=== PATIENT | female | born 1995 | race Caucasian/White ===

== ENCOUNTER 2018-01-16 02:37 | Emergency (ER) | payer OTHER ==
[2018-01-16 02:55] VITALS: RESP 18; TEMP 98.4
[2018-01-16 03:53] VITALS: BP 117/60; PULSE 53
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
== END 2018-01-16 04:02 | disposition home or self-care (01) ==
LOC: EC 02:37
DX: R51 Headache (principal); V47.6XXA Car passenger injured in collision with fixed or stationary object in traffic accident, initial encounter; Y92.488 Other paved roadways as the place of occurrence of the external cause
CPT/HCPCS: 99283

== ENCOUNTER → 2020-09-24 | Outpatient (CLI) | payer OTHER ==
--- NOTE | 2020-09-25 09:07 | US ---
EXAMINATION TYPE: Transabdominal DATE OF EXAM: 09/24/2020 4:17 PM COMPARISON: NONE CLINICAL HISTORY: Z36 Confirm Dates. Confirm Dates, pt has no complaints at this time EXAM PERFORMED: Transabdominal (TA) EXAM MEASUREMENTS: GESTATIONAL AGE / DATING Physician Established: (11 weeks/4 days) EDC: 04/11/2021 Dates by LMP: (9 weeks/4 days) EDC: 04/25/2021 Dates by First Scan: No prior Dates by Current Scan for: (11 weeks/3 days) EDC: 04/12/2021 MATERNAL ANATOMY Uterus: 12.9 x 7.0 x 8.6 cm Right Ovary: 3.8 x 2.4 x 1.9 Left Ovary: 3.9 x 1.4 x 3.3 Post CDS / Adnexa: wnl Presence of free fluid: No Presence of corpus luteal cyst: Left Ovary= 2.4 x 1.3 x 2.2 cm Presence of subchorionic bleed: No GESTATION / SURVEY CRL: 4.7 cm (11 weeks/3 days) MSD: wnl Heart Rate: 170 bpm Rhythm: Normal IUP: Viable IUP Date of LMP: Pt unsure, thinks= 07/19/2020 Viable IUP/ No abnormality visualized at this time IMPRESSION: 1. Single intrauterine gestation estimated at 11 weeks 3 days gestation based on crown-rump length. C ardiac activity measures 170 bpm.
== END | disposition home or self-care (01) ==
LOC: RADUSWWP 16:03
PROVIDERS: ATTEND Obstetrics & Gynecology
DX: Z3A.11 11 weeks gestation of pregnancy (principal)
CPT/HCPCS: 76801

== ENCOUNTER 2020-11-30 17:05 | Outpatient (CLI) | payer OTHER ==
[2020-11-30 17:45] LABS: Appearance,Urine Clear (Clear); Bacteria,Urine Moderate /hpf; Bilirubin,Urine Negative (Negative); Blood,Urine Trace (Negative); Color,Urine Light Yellow; Glucose,Urine (UA) Negative (Negative); Ketones,Urine Negative (Negative); Leukocyte Esterase,Urine Small (Negative); Mucus,Urine Rare /hpf; Nitrite,Urine Negative (Negative); Protein,Urine Negative (Negative); RBC,Urine 4 /hpf (0-5); Squamous Epithelial Cell,Urine <1 /hpf (0-4); Urobilinogen,Urine <2.0 mg/dL (<2.0); WBC,Urine 4 /hpf (0-5)
[2020-11-30 18:32] VITALS: BP 118/64; PULSE 66; RESP 14; TEMP 98.1
--- NOTE | 2020-12-01 08:18 | P.MSEPDOC ---
Presenting Problems - Arrival Data Date of Arrival on Unit: 11/30/20 Time of Arrival on Unit: 17:13 Mode of Transport: Ambulatory - Complaint OB-Reason for Admission/Chief Complaint: Pain Comment: cramping Medical History - Information : 1 Para: 0 Term: 0 : 0 Abortions: Spontaneous or Elective: 0 Number of Living Children: 0 - Gestational Age Gestational Age by BECK (wks/days): 21 Weeks and 0 Days Review of Systems - Review of Systems Constitutional: No problems Breast: No problems ENT: No problems Cardiovascular: No problems Respiratory: No problems Gastrointestinal: No problems Genitourinary: No problems Musculoskeletal: No problems Neurological: No problems Skin: No problems Vital Signs - Temperature Temperature: 98.1 F Temperature Source: Oral - Pulse Right Brachial Pulse Rate: 66 Pulse Assessment Method: Automatic Cuff - Respirations Respiratory Rate: 14 Oxygen Delivery Method: Room Air - Blood Pressure Right Arm Blood Pressure: 118/64 Blood Pressure Mean: 82 Blood Pressure Source: Automatic Cuff Medical Screen Scoring - Cervical Exam Dilation (cm): 0 Station: -3 Membranes: Intact Physician Notification - Physician Notified Physician Notified Date: 11/30/20 Physician Notified Time: 17:55 Physician: Janak Obrien Order Received: Yes - Notification Comment Comment: check cervix d/c home Maternal Triage Index - Maternal Triage Index Presenting for scheduled procedure w/no complaint: No - Stat/Priority 1 Stat Priority 1: No - Urgent/Priority 2 Urgent Priority 2: No - Prompt/Priority 3 Prompt Priority 3: No - Non-Urgent/Priority 4 Non-Urgent Priority 4: Yes Criteria Met for Priority 4: ligament pain Disposition - Disposition OB Disposition: Discharge to home Discharge Date: 11/30/20 Discharge Time: 18:00 I agree with the RN Medical Screening Exam: Yes Case reviewed; plan agreed upon as documented in EMR&OBIX.: Yes Diagnosis: PAIN, UNSPECIFIED (Patient presents with complaints of pelvic pain. There is no evidence of labor. I did send a urine culture to rule out a urinary tract infection. Patient was requested to follow-up with Dr. Stevens for these results or return if she has increased symptomatology.)
== END 2020-11-30 18:34 | disposition home or self-care (01) ==
LOC: FBPOP 17:05
PROVIDERS: ATTEND Obstetrics & Gynecology
DX: O26.892 Other specified pregnancy related conditions, second trimester (principal); R10.2 Pelvic and perineal pain; Z3A.21 21 weeks gestation of pregnancy
CPT/HCPCS: 81001; 87086; 99213

== ENCOUNTER → 2021-01-18 | Outpatient (CLI) | payer OTHER ==
--- NOTE | 2021-01-18 15:49 | US ---
EXAMINATION TYPE: US OB >= 14 wk fetus DATE OF EXAM: 01/18/2021 COMPARISON: US 09/24/2020 CLINICAL HISTORY: Z36.9 FOLLOW UP PREV ABN ULTRASOUND TECHNIQUE: Transabdominal (TA) GESTATIONAL AGE / DATING Physician Established: (28 weeks/0 days) EDC: 04/12/2021 Dates by LMP: (26 weeks/1 days) EDC: 04/25/2021 Dates by First Scan: (28 weeks/0 days) EDC: 04/12/2021 Dates by Current Scan: (27 weeks/5 days) EDC: 04/14/2021 SURVEY IUP: Single PLACENTA: Fundal/Posterior PREVIA: No Previa MAGGIE: 16.0 cm Normal CERVICAL LENGTH (transabdominal: norm > 3.0cm): 4.0 cm BIOMETRY PRESENTATION: Vertex LIE: Longitudinal BPD: 7.1 cm 28 weeks / 3 days HC: 26.0 cm 28 weeks / 2 days AC: 23.7 cm 28 weeks / 0 days FL: 5.2 cm 27 weeks / 5 days ESTIMATED WEIGHT IN GRAMS: 1154 grams ESTIMATED WEIGHT IN LBS/OZ: 2 lbs. 9 oz. WEIGHT PERCENTAGE BASED ON ESTABLISHED DATES: 36% HC/AC: 1.10 Normal FL/AC: 21.83 Normal HEART RATE: 146 bpm RHYTHM: Normal Viable IUP measuring 27 weeks 5 days with a heart rate of 146bpm and an estimated delivery date of . Bilateral dilated renal pelvis with right 0.6cm and left 0.6cm IMPRESSION: Dilated renal pelves. Limited scan. Single viable intrauterine corresponding to ultrasound age 27 weeks 5 days with estimated date of delivery 04/14/2021
== END | disposition home or self-care (01) ==
LOC: RADUSWWP 14:17
PROVIDERS: ATTEND Obstetrics & Gynecology
DX: O26.833 Pregnancy related renal disease, third trimester (principal); Z3A.27 27 weeks gestation of pregnancy
CPT/HCPCS: 76805

== ENCOUNTER → 2021-02-15 | Outpatient (CLI) | payer OTHER ==
--- NOTE | 2021-02-16 07:10 | US ---
EXAMINATION TYPE: US OB >= 14 wk fetus DATE OF EXAM: 02/15/2021 COMPARISON: US CLINICAL HISTORY: O36.63XO large for dates Large for dates. G1. P0. TECHNIQUE: Transabdominal (TA) GESTATIONAL AGE / DATING Physician Established: (32 weeks/0 days) EDC: 04/12/2021 Dates by LMP: (30 weeks/1 day) EDC: 04/25/2021 Dates by First Scan: (32 weeks/0 days) EDC: 04/12/2021 Dates by Current Scan: (32 weeks/2 days) EDC: 04/10/2021 SURVEY IUP: Single PLACENTA: Posterior/fundal. Complex areas seen, largest measures 0.9 x 1.3 x 0.9 cm. PREVIA: No Previa seen. AMGGIE: 17.5 cm Normal CERVICAL LENGTH (transabdominal: norm > 3.0cm): 3.6 cm BIOMETRY PRESENTATION: Vertex LIE: Longitudinal BPD: 7.94 cm 32 weeks / 0 days HC: 29.49 cm 32 weeks / 5 days AC: 28.70 cm 32 weeks / 6 days FL: 5.97 cm 31 weeks / 1 day ESTIMATED WEIGHT IN GRAMS: 1913 grams ESTIMATED WEIGHT IN LBS/OZ: 4 lbs. 3 oz. WEIGHT PERCENTAGE BASED ON ESTABLISHED DATES: 44% HC/AC: 1.03 Normal FL/AC: 21% Normal HEART RATE: 125 bpm RHYTHM: Normal *Renal pelvis measures 0.6 cm on the right and 0.6 cm on the left. IMPRESSION: Single viable intrauterine . Persistent prominence of the renal collecting systems.
== END | disposition home or self-care (01) ==
LOC: RADUSWWP 15:46
PROVIDERS: ATTEND Obstetrics & Gynecology
DX: O36.63X0 Maternal care for excessive fetal growth, third trimester, not applicable or unspecified (principal); Z3A.32 32 weeks gestation of pregnancy
CPT/HCPCS: 76805

== ENCOUNTER 2021-04-07 18:40 | Outpatient (CLI) | payer OTHER ==
[2021-04-07 20:15] VITALS: BP 127/75; PULSE 82; RESP 16; TEMP 98.5
--- NOTE | 2021-04-08 07:44 | P.MSEPDOC ---
Presenting Problems - Arrival Data Date of Arrival on Unit: 04/07/21 Time of Arrival on Unit: 18:40 Mode of Transport: Ambulatory - Complaint OB-Reason for Admission/Chief Complaint: Rule Out SROM Comment: pt. states leaking of fluid at 1400 clear fluid with white discharge Medical History - Information : 1 Para: 0 Term: 0 : 0 Abortions: Spontaneous or Elective: 0 Number of Living Children: 0 - Gestational Age Gestational Age by BECK (wks/days): 39 Weeks and 3 Days Review of Systems - Review of Systems Constitutional: No problems Breast: No problems ENT: No problems Cardiovascular: No problems Respiratory: No problems Gastrointestinal: No problems Genitourinary: No problems Musculoskeletal: No problems Neurological: No problems Skin: No problems Vital Signs - Temperature Temperature: 98.5 F Temperature Source: Oral - Pulse Pulse Oximetery Pulse Rate: 82 Pulse Assessment Method: Automatic Cuff - Respirations Respiratory Rate: 16 Oxygen Delivery Method: Room Air - Blood Pressure Right Arm Blood Pressure: 127/75 Blood Pressure Mean: 92 Blood Pressure Source: Automatic Cuff Medical Screen Scoring - Cervical Exam Dilation (cm): 2 Effacement (%): 70 Station: -3 Membranes: Intact - Assessment - Baby A Baseline FHR: 140 Heart Rate - NICHD Category: Category I (Normal) NST: Reactive Physician Notification - Physician Notified Physician Notified Date: 04/07/21 Physician Notified Time: 20:03 Physician: Mervat Groevr Order Received: Yes - Notification Comment Comment: orders to discharge patient home Maternal Triage Index - Maternal Triage Index Presenting for scheduled procedure w/no complaint: No - Stat/Priority 1 Stat Priority 1: No - Urgent/Priority 2 Urgent Priority 2: No - Prompt/Priority 3 Prompt Priority 3: Yes Criteria Met for Priority 3: possible SROM at 1400, aminsure collected x2 both negative Disposition - Disposition OB Disposition: Discharge to home Discharge Date: 04/07/21 Discharge Time: 20:08 I agree with the RN Medical Screening Exam: Yes Case reviewed; plan agreed upon as documented in EMR&OBIX.: Yes Diagnosis: FALSE LABOR AT OR AFTER 37 COMPLETED WEEKS OF GESTATION
== END 2021-04-07 20:08 | disposition home or self-care (01) ==
LOC: FBPOP 18:40
PROVIDERS: ATTEND Obstetrics & Gynecology
DX: O47.1 False labor at or after 37 completed weeks of gestation (principal); Z3A.39 39 weeks gestation of pregnancy
CPT/HCPCS: 84112; 99213

== ENCOUNTER 2021-04-11 07:42 | Inpatient (IN) | payer OTHER ==
[2021-04-11] MEDS ORDERED: CARBOPROST TROMETHAMINE 250 MCG/ML 1 ML AMP IM PRN (08:33)
[2021-04-11] MEDS ORDERED: METHYLERGONOVINE 0.2 MG/ML 1 ML AMP IM PRN (08:33)
[2021-04-11] MEDS ORDERED: LIDOCAINE 0.5% (PF) 5 MG/ML (50 ML SDV) SQ PRN (08:33)
[2021-04-11] MEDS ORDERED: OXYTOCIN 10 UNIT/ML 1 ML VIAL IM PRN (08:33)
[2021-04-11] MEDS ORDERED: TERBUTALINE 1 MG/ML VIAL SQ PRN (08:33)
[2021-04-11 08:41] LABS: Basophils % (A) 0 %; Eosinophils % (A) 0 %; HCT 37.2 % (34.0-46.0); Lymphocytes # (A) 2.6 k/uL (1.0-4.8); Lymphocytes % (A) 27 %; MCH 31.8 pg (25.0-35.0); MCHC 34.8 g/dL (31.0-37.0); MCV 91.4 fL (80.0-100.0); Mean Platelet Volume 9.9; Monocytes # (A) 0.5 k/uL (0-1.0); Monocytes % (A) 5 %; Neutrophils # (A) 6.2 k/uL (1.3-7.7); Neutrophils % (A) 65 %; Platelet Count 191 k/uL (150-450); RBC 4.07 m/uL (3.80-5.40); RDW 13.1 % (11.5-15.5); WBC 9.6 k/uL (3.8-10.6)
[2021-04-11] MEDS: LACTATED RINGERS 1,000 ML IV SCH ×3 (08:44→16:00)
[2021-04-11] MEDS ORDERED: OXYTOCIN 30 UNITS/500 ML NS 30 UNIT in SALINE 1 500ML.BAG IV SCH (08:45)
[2021-04-11] MEDS ORDERED: SODIUM CHLORIDE 0.9% 100 ML BAG ONE (10:17)
[2021-04-11] MEDS ORDERED: fentaNYL (PF) 50 MCG/ML 5 ML AMP ONE (10:17)
[2021-04-11] MEDS ORDERED: ROPIVACAINE 5MG/ML 20ML VIAL ONE (10:17)
[2021-04-11] MEDS ORDERED: ROPIVACAINE 100 MG, fentaNYL (PF). 200 MCG in SODIUM CHLORIDE 0.9% 76 ML EPIDURAL ONE (11:24)
--- NOTE | 2021-04-11 18:07 | P.HPOB ---
History of Present Illness H&P Date: 04/11/21 Chief Complaint: Contractions This is a 25-year-old female 1 para 0 at 40-0/7 weeks who presents with complaints of contractions since approximately 3 AM this morning. They became stronger and so she arrived to triage this morning. She did come up to triage a couple days ago with complaints of possible rupture of membranes but amnisure was negative. She states she has felt occasional leakage since that time including earlier this morning. Upon arrival she was not found to be ruptured but she was lara regularly and was 4 and half centimeters. care has been with Dr. Stevens and her was complicated by a dilated renal pelvis these on the fetus. She did see maternal medicine who recommended a follow-up ultrasound of the kidneys after delivery. labs: Hepatitis B surface antigen-negative RPR-nonreactive Rubella-immune Blood type-A+ Antibody screen-negative HIV-nonreactive Hemoglobin-12.8 Random glucose-79 Obstetrical ultrasound-normal anatomy and then dilated renal pelvis these bilaterally. 1 hour Glucola-145, three-hour Glucola-within normal limits Group B streptococcus-negative Obstetrical history: . Social history: She is . 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 Review of Systems Constitutional: Denies chills, Denies fever Eyes: denies blurred vision, denies pain Ears, nose, mouth and throat: Denies headache, Denies sore throat Cardiovascular: Denies chest pain, Denies shortness of breath Respiratory: Denies cough Gastrointestinal: Reports abdominal pain (Contractions) Genitourinary: Reports pelvic pain, Reports Musculoskeletal: Reports low back pain Integumentary: Denies pruritus, Denies rash Neurological: Denies numbness, Denies weakness Psychiatric: Denies anxiety, Denies depression Past Medical History Past Medical History: No Reported History History of Any Multi-Drug Resistant Organisms: None Reported Past Surgical History: Adenoidectomy, Tonsillectomy Additional Past Surgical History / Comment(s): in childhood Past Anesthesia/Blood Transfusion Reactions: No Reported Reaction Past Psychological History: No Psychological Hx Reported Smoking Status: Never smoker Past Alcohol Use History: Occasional Past Drug Use History: None Reported - Past Family History Mother Family Medical History: No Reported History Medications and Allergies Home Medications Medication Instructions Recorded Confirmed Type Pnv,Calcium 72/Iron/Folic Acid 1 tab PO DAILY 11/30/20 04/11/21 History [ Plus Tablet] Allergies Allergy/AdvReac Type Severity Reaction Status Date / Time No Known Allergies Allergy Verified 04/07/21 18:46 Exam Osteopathic Statement: *. No significant issues noted on an osteopathic structural exam other than those noted in the History and Physical/Consult. Vital Signs Temp Pulse Resp BP Pulse Ox 04/11/21 08:05 96.9 F L 77 18 131/80 99 Intake and Output 04/11/21 04/11/21 04/11/21 06:59 14:59 22:59 Output Total 300 Balance -300 Output: Urine 300 Other: Weight 74.843 kg HEENT: Within normal limits Heart: Regular rate and rhythm Lungs: Clear to auscultation bilaterally Abdomen: Cervix: Initially was 4-5 cm upon admission and currently is 8-1/2 cm/100%/-2 station. Artificial rupture membranes is carried out with clear fluid noted. heart tones: Reactive category 1 Contractions: Every 2-3 minutes Extremities: Negative Homans Results Result Diagrams: 04/11/21 08:25 Assessment and Plan (1) 40 weeks gestation of Current Visit: Yes Status: Acute Code(s): Z3A.40 - SNOMED Code(s): 45668415 Plan: Admission for active labor. Epidural anesthesia has been given. Expectant management. Will notify pediatrics regarding need for renal ultrasound of the baby after delivery.
--- NOTE | 2021-04-11 21:02 | P.PROBDLV ---
Vaginal Delivery Note - . Vaginal Delivery Note: Stephanie progressed to complete and pushing with spontaneous vaginal delivery of a viable male over a secondary laceration. Falling deliver the head from left occiput anterior position anterior posterior shoulders were easily delivered. Mouth nares were then bulb suctioned baby was placed on mother's abdomen where the umbilical cord lead pulsate for 30 seconds prior to clamping cutting with nursery personnel to assume care. scores of 9 and 9 at one and 5 minutes respectively and the weight is 6 lbs. 12 oz. Both mother and baby are stable following delivery. A second degree perineal laceration was repaired with 3-0 Vicryl in usual fashion following removal Xylocaine for analgesia.
[2021-04-11] MEDS ORDERED: diphenhydrAMINE 50 MG/ML 1 ML VIAL IVP PRN ×2 (21:35)
[2021-04-11] MEDS ORDERED: diphenhydrAMINE 25 MG CAP PO PRN (21:35)
[2021-04-11] MEDS ORDERED: HYDROCORTISONE 2.5% RECTAL CREAM 30 GM TUBE RECTAL PRN (21:35)
[2021-04-11] MEDS ORDERED: ACETAMINOPHEN TAB 325 MG TAB PO PRN (21:35)
[2021-04-11] MEDS ORDERED: ZOLPIDEM 5 MG TAB PO PRN (21:35)
[2021-04-11] MEDS ORDERED: BENZOCAINE/MENTHOL SPRAY 1 GM/SPRAY AEROSOL TOPICAL PRN (21:35)
[2021-04-11] MEDS ORDERED: LANOLIN CREAM 5 GM TUBE TOPICAL PRN (21:35)
[2021-04-11] MEDS ORDERED: SIMETHICONE 80 MG CHEWABLE PO PRN (21:35)
[2021-04-11] MEDS ORDERED: diphenhydrAMINE 50 MG CAP PO PRN (21:35)
[2021-04-12 07:38] LABS: Basophils % (A) 0 %; Eosinophils % (A) 0 %; HCT 31.2 % (34.0-46.0); HGB 10.9 gm/dL (11.4-16.0); Lymphocytes # (A) 2.2 k/uL (1.0-4.8); Lymphocytes % (A) 21 %; MCH 32.2 pg (25.0-35.0); MCHC 35.1 g/dL (31.0-37.0); MCV 91.8 fL (80.0-100.0); Mean Platelet Volume 9.9; Monocytes # (A) 0.6 k/uL (0-1.0); Monocytes % (A) 6 %; Neutrophils # (A) 7.3 k/uL (1.3-7.7); Neutrophils % (A) 71 %; Platelet Count 146 k/uL (150-450); RDW 12.9 % (11.5-15.5); WBC 10.3 k/uL (3.8-10.6)
[2021-04-12] MEDS: IBUPROFEN 600 MG TAB PO PRN ×3 (08:20→23:11)
[2021-04-12] MEDS: SENNOSIDES-DOCUSATE SODIUM 1 EACH TAB PO SCH ×2 (08:22→21:37)
--- NOTE | 2021-04-12 08:35 | P.PNOBGVD ---
Subjective - Subjective Principal diagnosis: S/P NVD PPD #1 Interval history: Patient seen and examined. Denies nausea, vomiting, chest pain, shortness of breath or calf pain. Patient reports: Reports appetite normal, Reports voiding normally, Reports pain well controlled, Reports ambulating normally : doing well Objective - Latest Vital Signs Latest vital signs: Vital Signs Temp Pulse Resp BP BP Pulse Ox 04/12/21 07:48 97.8 F 55 L 18 130/82 99 04/12/21 04:00 98.4 F 63 16 115/74 99 04/12/21 00:00 99.0 F 75 16 108/60 97 04/11/21 22:54 97.0 F L 87 16 143/73 04/11/21 22:24 97.4 F L 85 16 131/69 04/11/21 21:54 98.1 F 66 16 133/68 04/11/21 21:39 98.0 F 78 16 140/77 04/11/21 21:24 98.0 F 69 16 134/76 04/11/21 21:09 98.3 F 72 16 130/70 04/11/21 20:54 98.8 F 82 16 134/79 Intake and Output 04/11/21 04/12/21 04/12/21 22:59 06:59 14:59 Intake Total 167 Balance 167 Intake: Intake, IV Titration 167 Amount Oxytocin 30 Units/500 ml 167 Ns 30 unit In Saline 1 500ml.bag @ Per Protocol IV .Q0M [facility] Rx#:[id number] Other: # Voids 1 0 2 # Bowel Movements 0 - Exam Lungs: bilateral: normal Chest: Normal S1, Normal S2 Extremities: Present: normal Abdomen: Present: normal appearance, soft Uterus: Present: normal, firm - Labs Labs: Abnormal Lab Results - Last 24 Hours (Table) 04/12/21 Range/Units 07:10 RBC 3.40 L (3.80-5.40) m/uL Hgb 10.9 L (11.4-16.0) gm/dL Hct 31.2 L (34.0-46.0) % Plt Count 146 L (150-450) k/uL Assessment and Plan (1) Normal vaginal delivery Current Visit: Yes Status: Acute Code(s): O80 - ENCOUNTER FOR FULL-TERM UNCOMPLICATED DELIVERY SNOMED Code(s): 16371911 Plan: 1. Continue care
[2021-04-12 16:43] VITALS: RESP 16
[2021-04-13] MEDS: IBUPROFEN 600 MG TAB PO PRN (07:00)
--- NOTE | 2021-04-13 09:08 | P.DS ---
Providers Date of admission: 04/11/21 08:04 Expected date of discharge: 04/13/21 Attending physician: Brian Stevens Primary care physician: Stated None - Discharge Diagnosis(es) (1) Normal vaginal delivery Current Visit: Yes Status: Acute Hospital Course: Patient presented in labor. She underwent normal vaginal delivery. course was uncomplicated. She denies nausea, vomiting, chest pain, shortness of breath or any calf pain. Patient will be discharged home day #2 in stable condition to follow-up in 6 weeks. Plan - Discharge Summary New Discharge Prescriptions: New Ibuprofen [Motrin] 600 mg PO Q6HR PRN #30 tab PRN Reason: Mild Pain (Scale 1 To 3) No Action Pnv,Calcium 72/Iron/Folic Acid [ Plus Tablet] 1 tab PO DAILY Discharge Medication List Pnv,Calcium 72/Iron/Folic Acid [ Plus Tablet] 1 tab PO DAILY 11/30/20 [History] Ibuprofen [Motrin] 600 mg PO Q6HR PRN #30 tab 04/13/21 [Rx] Follow up Appointment(s)/Referral(s): Brian Stevens DO [Doctor of Osteopathic Medicine] - 05/20/21 3:00 pm Discharge Disposition: HOME SELF-CARE
[2021-04-13 09:28] VITALS: BP 133/80; PULSE 76; TEMP 97.8
[2021-04-13] MEDS: SENNOSIDES-DOCUSATE SODIUM 1 EACH TAB PO SCH (09:34)
== END 2021-04-13 14:14 | disposition home or self-care (01) | DRG 807 ==
LOC: FBPOP 07:42 → 4FBP 08:04
PROVIDERS: ADMIT Obstetrics & Gynecology; ATTEND Obstetrics & Gynecology
PROC: 10E0XZZ Delivery of Products of Conception, External Approach (ICD-10-PCS; principal; 2021-04-11)
PROC: 0KQM0ZZ Repair Perineum Muscle, Open Approach (ICD-10-PCS; 2021-04-11)
PROC: 10907ZC Drainage of Amniotic Fluid, Therapeutic from Products of Conception, Via Natural or Artificial Opening (ICD-10-PCS; 2021-04-11)
DX: O70.1 Second degree perineal laceration during delivery (principal); Z37.0 Single live birth; Z3A.40 40 weeks gestation of pregnancy
CPT/HCPCS: 59025; 85025; 86850; 86900; 86901; 99213

== ENCOUNTER 2023-04-20 05:55 | Inpatient (IN) | payer OTHER ==
[2023-04-20] MEDS ORDERED: OXYTOCIN 10 UNIT/ML 1 ML VIAL IM PRN (07:12)
[2023-04-20] MEDS ORDERED: miSOPROStoL 200 MCG TAB PO PRN (07:12)
[2023-04-20] MEDS ORDERED: TERBUTALINE 1 MG/ML VIAL SQ PRN (07:12)
[2023-04-20] MEDS ORDERED: TRANEXAMIC 1,000 MG/100ML-NACL 1,000 MG in EMPTY BAG 1 BAG IV PRN (07:12)
[2023-04-20] MEDS ORDERED: METHYLERGONOVINE 0.2 MG/ML 1 ML AMP IM PRN (07:12)
[2023-04-20] MEDS ORDERED: LIDOCAINE 0.5% (PF) 5 MG/ML (50 ML SDV) SQ PRN (07:12)
[2023-04-20] MEDS ORDERED: CARBOPROST TROMETHAMINE 250 MCG/ML 1 ML AMP IM PRN (07:12)
[2023-04-20] MEDS ORDERED: OXYTOCIN 30 UNITS/500 ML NS 30 UNIT in SALINE 1 500ML.BAG IV SCH (07:15)
[2023-04-20] MEDS: LACTATED RINGERS 1,000 ML IV SCH ×2 (07:22→11:17)
[2023-04-20 07:27] LABS: Basophils % (A) 0 %; Eosinophils % (A) 1 %; HCT 34.6 % (34.0-46.0); HGB 12.4 gm/dL (11.4-16.0); Lymphocytes # (A) 2.3 k/uL (1.0-4.8); Lymphocytes % (A) 30 %; MCHC 35.8 g/dL (31.0-37.0); MCV 92.1 fL (80.0-100.0); Mean Platelet Volume 9.4; Monocytes # (A) 0.4 k/uL (0-1.0); Monocytes % (A) 5 %; Neutrophils # (A) 4.6 k/uL (1.3-7.7); Neutrophils % (A) 62 %; Platelet Count 187 k/uL (150-450); RBC 3.76 m/uL (3.80-5.40); RDW 12.8 % (11.5-15.5); WBC 7.5 k/uL (3.8-10.6)
[2023-04-20] MEDS ORDERED: NALBUPHINE 10 MG/ML (10 ML MDV) IV PRN (09:12)
[2023-04-20] MEDS ORDERED: fentaNYL (PF) 50 MCG/ML 5 ML AMP ONE (10:51)
[2023-04-20] MEDS ORDERED: ROPIVACAINE 5 MG/ML 30 ML VIAL ONE (10:51)
[2023-04-20] MEDS ORDERED: SODIUM CHLORIDE 0.9% 250 ML BAG ONE (10:51)
--- NOTE | 2023-04-20 12:22 | P.ANPRN ---
Procedure Note - Anesthesia - Epidural/Spinal Epidural Continuous Time Out Performed: Yes Date of Procedure: 04/20/23 Procedure Start Time: 10:55 Procedure Stop Time: 11:05 Location of Patient: OB Indication: Analgesia, Requested by Surgeon Sedation Type: Awake Preparation: Sterile Prep Number of Attempts: 1 Position: Sitting Catheter: Indwelling Needle Guage: 18 Injectate: 3 ml of 1.5% Lidocaine with epi.---No sign and Symptoms Blood Aspirated: No Pain Paresthesia on Injection Noted: No Events: Uneventful and Well Tolerated
[2023-04-20] MEDS ORDERED: HYDROCORTISONE 2.5% RECTAL CREAM 30 GM TUBE RECTAL PRN (13:15)
[2023-04-20] MEDS ORDERED: SIMETHICONE 80 MG CHEWABLE PO PRN (13:15)
[2023-04-20] MEDS ORDERED: ZOLPIDEM 5 MG TAB PO PRN (13:15)
[2023-04-20] MEDS ORDERED: diphenhydrAMINE 50 MG/ML 1 ML VIAL IVP PRN ×2 (13:15)
[2023-04-20] MEDS ORDERED: LANOLIN CREAM 5 GM TUBE TOPICAL PRN (13:15)
[2023-04-20] MEDS ORDERED: diphenhydrAMINE 50 MG CAP PO PRN (13:15)
[2023-04-20] MEDS ORDERED: diphenhydrAMINE 25 MG CAP PO PRN (13:15)
[2023-04-20] MEDS ORDERED: BENZOCAINE/MENTHOL SPRAY 1 GM/SPRAY AEROSOL TOPICAL PRN (13:15)
--- NOTE | 2023-04-20 13:15 | P.PROBDLV ---
Vaginal Delivery Note - . Vaginal Delivery Note: Findings viable male delivered at 1253, weight of 7 pounds 3.9 ounces, Apgars of 9 and 9 at one and 5 minutes respectively. 27 yo at 39 weeks of that presents for induction of labor. Patient was admitted was admitted to labor and delivery for Pitocin induction of labor. Pitocin was begun per hospital protocol. Patient underwent amniotomy and clear fluid was obtained. Patient did get uncomfortable and requested epidural placement. Epidural was placed without difficulty by the anesthesia department. Patient was noted to be completely dilated at 1236, she began pushing and with excellent maternal effort had a normal spontaneous vaginal delivery of a viable male at 1253, tight nuchal cord was doubly clamped and cut on the perineum. Spontaneous cry was noted at . Infant was handed off to the maternal abdomen. Placenta was delivered spontaneously intact with a three-vessel cord being noted on inspection the patient's vaginal vault a first- degree vaginal laceration was appreciated. This was repaired in the usual fashion with 3-0 repeat, hemostasis was noted after repair. Uterus is noted be firm and below the umbilicus. Bladder drained for approximately 100 mL of urine during pushing. Estimated blood loss 100 mL All counts are correct 2 Patient and infant tolerated delivery well and are resting comfortably
--- NOTE | 2023-04-20 13:15 | P.HPOB ---
History of Present Illness H&P Date: 04/20/23 Chief Complaint: IUP @ 39 weeks This is a 27-year-old at 39 weeks of that presents for induction of labor. Patient is been receiving routine care with myself which has been essentially uncomplicated. Patient notes good movement denies contractions vaginal bleeding or loss of fluid. On bloodwork this patient has a blood type of A+, rubella status immune, hep Alice surface engine negative, HIV negative, RPR is nonreactive, group beta strep cultures negative. Review of Systems Constitutional: Denies chills, Denies fatigue, Denies fever Ears, nose, mouth and throat: Denies headache Cardiovascular: Denies leg edema Respiratory: Denies dyspnea Gastrointestinal: Denies constipation, Denies diarrhea, Denies nausea, Denies vomiting Genitourinary: Reports Past Medical History Past Medical History: No Reported History History of Any Multi-Drug Resistant Organisms: None Reported Past Surgical History: Adenoidectomy, Tonsillectomy Additional Past Surgical History / Comment(s): in childhood Past Anesthesia/Blood Transfusion Reactions: No Reported Reaction Past Psychological History: Anxiety, Depression Smoking Status: Never smoker Past Alcohol Use History: None Reported Past Drug Use History: None Reported - Past Family History Mother Family Medical History: No Reported History Medications and Allergies Allergies Allergy/AdvReac Type Severity Reaction Status Date / Time No Known Allergies Allergy Verified 04/20/23 07:11 Exam Osteopathic Statement: *. No significant issues noted on an osteopathic structural exam other than those noted in the History and Physical/Consult. Vital Signs Temp Pulse Resp BP 04/20/23 07:30 97.0 F L 90 18 113/69 Intake and Output 04/19/23 04/20/23 04/20/23 22:59 06:59 14:59 Other: Weight 70.307 kg Targeted physical exam is performed and state in general this a well-nourished well-developed female in no acute distress, breathing is noted to be nonlabored, heart has a regular rate and rhythm, abdomen is gravid and appropriate for gestational age, heart tones are noted to be category 1 and she is lara every 2 minutes. On cervical exam she is 3-4/70/-2 amniotomy is performed and clear fluid was obtained. Results Result Diagrams: 04/20/23 07:02 Abnormal Lab Results - Last 24 Hours (Table) 04/20/23 Range/Units 07:02 RBC 3.76 L (3.80-5.40) m/uL Assessment and Plan (1) Term Current Visit: Yes Status: Acute Code(s): Z34.90 - ENCNTR FOR SUPRVSN OF NORMAL , UNSP, UNSP TRIMESTER SNOMED Code(s): 59121883 Plan: 27-year-old at 39 weeks of gestation presents for induction of labor. Patient is admitted and Pitocin induction of labor is begun per hospital protocol. Amniotomy is performed and clear fluid was obtained. Patient options for analgesia are discussed including epidural, nitrous, Nubain. Patient will consider. Anticipate spontaneous vaginal delivery.
[2023-04-20] MEDS: IBUPROFEN 600 MG TAB PO SCH ×2 (15:02→23:32)
[2023-04-20] MEDS: ACETAMINOPHEN TAB 325 MG TAB PO PRN (20:01)
[2023-04-20] MEDS: SENNOSIDES-DOCUSATE SODIUM 1 EACH TAB PO SCH (20:02)
[2023-04-20 21:59] VITALS: TEMP 97.8
[2023-04-21] MEDS: ACETAMINOPHEN TAB 325 MG TAB PO PRN ×3 (01:59→13:45)
[2023-04-21] MEDS: IBUPROFEN 600 MG TAB PO SCH ×2 (05:28→11:23)
[2023-04-21] MEDS: SENNOSIDES-DOCUSATE SODIUM 1 EACH TAB PO SCH (08:35)
--- NOTE | 2023-04-21 08:57 | P.DS ---
Providers Date of admission: 04/20/23 05:55 Expected date of discharge: 04/21/23 Attending physician: Katt Horton Primary care physician: Stated None - Discharge Diagnosis(es) (1) Term Current Visit: Yes Status: Acute (2) Obstetric vaginal laceration with first degree perineal laceration Current Visit: Yes Status: Acute (3) Normal vaginal delivery Current Visit: No Status: Acute Hospital Course: This is a 27-year-old G2 now P2 status post normal spontaneous vaginal delivery. Patient was admitted on 04/20 for induction of labor. Patient been receiving routine care which is been essentially on computed. Patient was admitted and Pitocin induction of labor was begun. Amniotomy is performed and clear fluid was obtained. Patient progressed through labor did request epidural for analgesia. Epidural was placed without difficulty by the anesthesia department. Patient progressed to complete began pushing and had a normal spontaneous vaginal delivery of a viable male infant at 1253, weight of 7 pounds 3.9 ounces, Apgars of 9 and 9 at one and 5 minutes respectively. Patient did sustain a first-degree vaginal laceration which was repaired in the usual fashion with 3-0 Rapide. Patient's course has been uneventful. On this day #1 she is ambulating and voiding without difficulty. She is tolerating a regular diet without nausea or vomiting. States her lochia is minimal to moderate. She is breast-feeding. She denies concerns and would like discharge home at 24 hours. Patient Condition at Discharge: Good Plan - Discharge Summary Follow up Appointment(s)/Referral(s): Katt Horton DO [Doctor of Osteopathic Medicine] - 6 Weeks Patient Instructions/Handouts: Vaginal Delivery (DC), Vaginal Delivery (GEN) Activity/Diet/Wound Care/Special Instructions: No tub baths or intercourse until 6 weeks PP. [id number] ibuprofen as needed for pain. Routine appointment to be scheduled at 6 weeks. Should she have any concerns prior to this appointment she is urged to call the office. She did struggle with depression and is urged to call if she has any symptoms or concerns. Discharge Disposition: HOME SELF-CARE
[2023-04-21 09:00] VITALS: BP 127/88; PULSE 84; RESP 14
== END 2023-04-21 14:48 | disposition home or self-care (01) | DRG 807 ==
LOC: 4FBP 05:55
PROVIDERS: ADMIT Obstetrics & Gynecology Obstetrics; ATTEND Obstetrics & Gynecology Obstetrics
PROC: 10E0XZZ Delivery of Products of Conception, External Approach (ICD-10-PCS; principal; 2023-04-20)
PROC: 0HQ9XZZ Repair Perineum Skin, External Approach (ICD-10-PCS; 2023-04-20)
PROC: 10907ZC Drainage of Amniotic Fluid, Therapeutic from Products of Conception, Via Natural or Artificial Opening (ICD-10-PCS; 2023-04-20)
PROC: 3E033VJ Introduction of Other Hormone into Peripheral Vein, Percutaneous Approach (ICD-10-PCS; 2023-04-20)
DX: O69.1XX0 Labor and delivery complicated by cord around neck, with compression, not applicable or unspecified (principal); Z37.0 Single live birth; O70.0 First degree perineal laceration during delivery; O99.344 Other mental disorders complicating childbirth; F32.A Depression, unspecified; F41.9 Anxiety disorder, unspecified; Z3A.39 39 weeks gestation of pregnancy
CPT/HCPCS: 85025; 86850; 86900; 86901